=== PATIENT | female | born 1970 | race Hispanic/Latino ===

== ENCOUNTER → 2017-11-21 | Outpatient (CLI) | payer OTHER | END | disposition home or self-care (01) | LOC: RAH 08:02 | PROVIDERS: ATTEND Obstetrics & Gynecology | DX: Z12.31 Encounter for screening mammogram for malignant neoplasm of breast (principal); N85.2 Hypertrophy of uterus; D25.1 Intramural leiomyoma of uterus; N92.0 Excessive and frequent menstruation with regular cycle | CPT/HCPCS: 76856; 77067 ==

== ENCOUNTER → 2018-11-24 | Outpatient (CLI) | payer OTHER | END | disposition home or self-care (01) | LOC: OIH 12:25 | PROVIDERS: ATTEND Internal Medicine Cardiovascular Disease | DX: Z13.6 Encounter for screening for cardiovascular disorders (principal) | CPT/HCPCS: 75571 ==

== ENCOUNTER → 2018-12-08 | Outpatient (CLI) | payer OTHER | END | disposition home or self-care (01) | LOC: RAH 14:55 | PROVIDERS: ATTEND Neurological Surgery | DX: M50.323 Other cervical disc degeneration at C6-C7 level (principal); M47.22 Other spondylosis with radiculopathy, cervical region; M25.78 Osteophyte, vertebrae; M48.02 Spinal stenosis, cervical region | CPT/HCPCS: 72141 ==

== ENCOUNTER → 2019-12-13 | Outpatient (CLI) | payer BC | END | disposition home or self-care (01) | LOC: RAH 13:07 | PROVIDERS: ATTEND Obstetrics & Gynecology | DX: Z12.31 Encounter for screening mammogram for malignant neoplasm of breast (principal) | CPT/HCPCS: 77067 ==

== ENCOUNTER → 2021-02-12 | Outpatient (CLI) | payer BC | END | disposition home or self-care (01) | LOC: RAH 15:32 | PROVIDERS: ATTEND Obstetrics & Gynecology | DX: Z12.31 Encounter for screening mammogram for malignant neoplasm of breast (principal) | CPT/HCPCS: 77067 ==

== ENCOUNTER 2022-03-18 22:09 | Emergency (ER) | payer BC, MEDICARE ==
[~2022-03-18] VITALS: Ht 167.6 cm; Wt 80.7 kg
[2022-03-18 22:11] VITALS: BP 170/104
[2022-03-18] MEDS ORDERED: KETOROLAC 30MG VIAL (30MG/ML) IM ONE (23:00)
== END 2022-03-18 23:26 | disposition home or self-care (01) ==
LOC: EDH 22:09
DX: M79.672 Pain in left foot (principal); I10 Essential (primary) hypertension; E78.00 Pure hypercholesterolemia, unspecified; M06.9 Rheumatoid arthritis, unspecified; Z88.8 Allergy status to other drugs, medicaments and biological substances; Z96.649 Presence of unspecified artificial hip joint; Z96.653 Presence of artificial knee joint, bilateral
CPT/HCPCS: 73590; 73630; 96372; 99284; J1885

== ENCOUNTER 2022-06-30 00:45 | Emergency (ER) | payer BC, MEDICARE ==
[~2022-06-30] VITALS: Ht 167.6 cm; Wt 82.6 kg
[2022-06-30 01:20] LABS: BASOPHILS % (AUTO) 0.7 % (0.0-5.0); EOSINOPHILS % (AUTO) 2.3 % (0.0-8.0); HEMATOCRIT 40.6 % (36-48); LYMPHOCYTES % (AUTO) 33.4 % (21.0-51.0); MEAN CORPUSCULAR HEMOGLOBIN 29.7 pg (27.0-33.0); MEAN CORPUSCULAR HGB CONC 33.5 g/dL (32.0-36.0); MEAN CORPUSCULAR VOLUME 88.6 fL (79-99); MONOCYTES % (AUTO) 8.6 % (3.0-13.0); NEUTROPHILS % (AUTO) 54.5 % (40.0-77.0); PLATELET COUNT (AUTO) 316 K/uL (130-400); RED BLOOD CELL COUNT(AUTO) 4.58 MIL/uL (4.00-5.50); RED CELL DISTRIBUTION WIDTH 13.8 % (11.0-15.5); WHITE BLOOD COUNT (AUTO) 5.6 K/uL (4.8-10.8)
[2022-06-30] MEDS ORDERED: KETOROLAC 15MG/ML VIAL (15MG/ML) IV ONE (01:30)
[2022-06-30] MEDS ORDERED: HYDRALAZINE 20MG/ML VIAL IV ONE (01:30)
[2022-06-30] MEDS ORDERED: KETOROLAC 15MG/ML VIAL (15MG/ML) ONE (01:32)
[2022-06-30] MEDS ORDERED: HYDRALAZINE 20MG/ML VIAL ONE (01:32)
[2022-06-30 01:37] LABS: ALBUMIN 3.1 g/dL (3.5-5.0); CREATININE 0.8 mg/dL (0.5-1.5); TOTAL PROTEIN, SERUM 7.3 g/dL (6.0-8.3)
[2022-06-30 01:38] LABS: POTASSIUM 2.9 mmol/L (3.5-5.1)
[2022-06-30 01:42] LABS: B-TYPE NATRIURETIC PEPTIDE 8 pg/mL (0-100)
[2022-06-30] MEDS ORDERED: POTASSIUM BICARB/CIT AC 25 MEQ TABLET.EFF PO ONE (02:00)
[2022-06-30 02:22] VITALS: BP 139/82
== END 2022-06-30 02:31 | disposition home or self-care (01) ==
LOC: EDH 00:45
DX: I10 Essential (primary) hypertension (principal); E87.6 Hypokalemia; F41.9 Anxiety disorder, unspecified; E78.00 Pure hypercholesterolemia, unspecified; M19.90 Unspecified osteoarthritis, unspecified site; Z79.1 Long term (current) use of non-steroidal anti-inflammatories (NSAID); Z90.721 Acquired absence of ovaries, unilateral; Z96.653 Presence of artificial knee joint, bilateral
CPT/HCPCS: 99284; 96374; 96375; 84484; 80053; 83880; 85025; 36415; 93005; J0360; J1885

== ENCOUNTER → 2022-10-10 | Outpatient (CLI) | payer BC, MEDICARE | END | disposition home or self-care (01) | LOC: RAH 07:48 | PROVIDERS: ATTEND Obstetrics & Gynecology | DX: Z12.31 Encounter for screening mammogram for malignant neoplasm of breast (principal) | CPT/HCPCS: 77067 ==

== ENCOUNTER 2023-11-29 09:48 | Emergency (ER) | payer BC, MEDICARE ==
[~2023-11-29] VITALS: Ht 167.6 cm; Wt 84.8 kg
[2023-11-29 10:10] VITALS: BP 150/87; PULSE 80; RESP 18; O2SAT 98
[2023-11-29] MEDS ORDERED: DEXAMETHASONE SOD PHOSPHATE 4 MG/ML 1ML VIAL IM ONE (10:30)
[2023-11-29] MEDS ORDERED: DiphenhydrAMINE HCL 50 MG/ML VIAL IM ONE (10:30)
== END 2023-11-29 10:53 | disposition home or self-care (01) ==
LOC: EDH 09:48
DX: R21 Rash and other nonspecific skin eruption (principal); I10 Essential (primary) hypertension
CPT/HCPCS: 99284; 96372 ×2; J1100; J1200

== ENCOUNTER → 2024-11-12 | Outpatient (CLI) | payer BC, MEDICARE ==
--- NOTE | 2024-11-12 11:32 | HMCIMG ---
SCREENING MAMMOGRAM REASON: Annual Exam COMPARISON: 10/10/2022 TECHNIQUE: CC and MLO views of the bilateral breasts were performed.CAD was performed as well. FINDINGS: Parenchymal density: There are scattered areas of fibroglandular density. There are no focal mass lesions. There are no pathologic appearing calcifications. There is no evidence of architectural distortion or skin thickening. IMPRESSION: Normal screening mammogram The patient was entered into a reminder system with a target due date for their next mammogram. BI-RADS CATEGORY 1: NEGATIVE Recommend monthly self breast exam as well as annual clinical examination. A negative x-ray should not delay biopsy if a dominant or clinically suspicious mass is present, since 8-10% of cancers are not identified by mammography. Dense breasts particularly, may obscure an underlying neoplasm. Some of these may be detected clinically and therefore, clinical examination is an essential part of breast evaluation.
== END | disposition home or self-care (01) ==
LOC: RAH 09:52
PROVIDERS: ATTEND Obstetrics & Gynecology
DX: Z12.31 Encounter for screening mammogram for malignant neoplasm of breast (principal); R92.30 Dense breasts, unspecified
CPT/HCPCS: 77067